=== PATIENT | male | born 1990 | race Caucasian/White ===

== ENCOUNTER 2022-04-12 14:23 | Emergency (ER) | payer OTHER, SELFPAY ==
--- NOTE | ~2022-04-12 | XR_ITS ---
EXAMINATION: XR chest 2V 04/12/2022 15:09 INDICATION: Chest pain. History of asthma. PROCEDURE: 2 view chest COMPARISON: No prior studies for comparison. FINDINGS: The lungs are clear. There is mild pulmonary vascular congestion. No overt pulmonary edema. The cardiomediastinal silhouette is within normal limits. There are no pleural effusions. There is no pneumothorax suspected. IMPRESSION: 1: NO ACUTE CARDIOPULMONARY DISEASE. Reviewed, dictated and finalized at location A. [employer] OPERATOR
--- NOTE | 2022-04-12 14:32 | ECG_ITS ---
Measurements Intervals [place] Rate: 85 P: 30 NH: 132 QRS: 70 QRSD: 108 T: 40 QT: 328 QTc: 390 Interpretive Statements SINUS RHYTHM WITHIN NORMAL LIMITS NO PREVIOUS ECG AVAILABLE FOR COMPARISON Electronically Signed On 04-12-2022 15:34:35 [employer] by Natan Chao M.D.
[2022-04-12 14:37] VITALS: BP 123/83; PULSE 87; RESP 16; TEMP 36.7; O2SAT 100
[2022-04-12 14:59] LABS: Basophils Percent Auto 0.3 % (0.2-1.2); Eosinophils Absolute Auto 0.3 K/mm3 (0-0.3); Eosinophils Percent Auto 2.8 % (0-4.4); Hematocrit 45.3 % (42.0-52.0); Hemoglobin 16.1 g/dL (14.0-18.0); Immature Granulocyte Absolute 0.02 K/mm3 (0.00-0.031); Immature Granulocyte Percent A 0.2 % (0-0.5); Lymphocytes Absolute Auto 2.23 K/mm3 (0.9-3.2); Lymphocytes Percent Auto 23.8 % (18.3-44.2); Mean Corpuscular HGB Conc 35.5 g/dl (32-36); Mean Corpuscular Hemoglobin 31.9 pg (26-34); Mean Corpuscular Volume 89.9 fl (80-100); Mean Platelet Volume 8.6 fl (7.4-10.4); Monocytes Absolute Auto 0.6 K/mm3 (0.1-0.6); Monocytes Percent Auto 6.5 % (2.6-8.5); Neutrophils Absolute Auto 6.2 K/mm3 (1.3-6.7); Neutrophils Percent Auto 66.4 % (45.5-73.1); Platelet Count Result 254 k/mm3 (150-375); Red Blood Count 5.04 M/mm3 (4.6-6.20); Red Cell Distribution Width 12.8 % (11.5-14.5); White Blood Count 9.4 K/mm3 (4.5-10.0)
[2022-04-12 15:08] LABS: Alanine Aminotransferase 37 U/L (6-50); Albumin Level 4.8 g/dL (3.5-5.1); Alkaline Phosphatase 83 U/L (38-126); Anion Gap 5 mmol/L (8-16); Aspartate Amino Transferase 30 U/L (17-59); Bilirubin,Total 0.5 mg/dL (0.2-1.3); Blood Urea Nitrogen 14 mg/dL (9-20); Carbon Dioxide 30 mmol/L (22-30); Chloride 105 mmol/L (98-107); Estimated CRCL calculation 115 ml/min; Estimated Glomerular Filt Rate > 60; Glucose 67 mg/dL (65-110); Lipase 104 U/L (23-300); Potassium 3.8 mmol/L (3.4-5.0); Sodium 140 mmol/L (137-145)
[2022-04-12 15:11] LABS: Prothrombin Time 12.9 Seconds (11.1-14.7)
[2022-04-12 15:20] LABS: Troponin I < 0.012 ng/mL (0.000-0.034)
[2022-04-12 16:41] VITALS: BP 126/85; PULSE 75; RESP 16; O2SAT 100
[2022-04-12 16:43] VITALS: PULSE 75
--- NOTE | 2022-04-12 16:46 | PC.NURSE ---
I did not do the EKG
[2022-04-12 17:01] VITALS: BP 127/85; PULSE 80; RESP 20; O2SAT 99
--- NOTE | 2022-04-12 17:34 | ED.GENADULT ---
HPI - General Adult General Chief complaint: Chest Pain Stated complaint: chest pressure Time Seen by Provider: 04/12/22 16:32 History of Present Illness HPI narrative: 31-year-old male with history of anxiety and IBS department for evaluation of intermittent left-sided heart pain. Patient states that over the last few months he has noticed a pressure sensation over what he feels is his heart. Patient states that the symptoms can occur at rest or with activity. Patient states that most frequently occur at rest and if he is thinking about it. While patient was talking about the symptoms he states that he started having an increased pressure. Patient denies any prior cardiac history. Reports no new medications. Patient reports he did have COVID and is negative. Patient denies any prior history of PE or DVT. Patient denies any shortness of breath, nausea vomiting diaphoresis when he has the episodes of chest pressure. Related Data Home Medications Medication Instructions Recorded Confirmed imipramine HCl 10 mg tablet 20 mg PO BID 09/13/21 dicyclomine 10 mg capsule 10 mg PO DAILY 04/12/22 Allergies Allergy/AdvReac Type Severity Reaction Status Date / Time melon Allergy Mild itchy Verified 04/12/22 16:47 throat cat dander Allergy itchy eyes Verified 04/12/22 16:47 latex Allergy Itching Verified 04/12/22 16:47 cortisone AdvReac Unknown Unknown Verified 04/12/22 16:47 Review of Systems Review of Systems: CONSTITUTIONAL: Denies fever, chills, or sweats. EYES: Denies visual changes, redness, or discharge. ENT: Denies rhinorrhea, congestion, sore throat, or otalgia. CARDIOVASCULAR: See HPI RESPIRATORY: Denies cough or dyspnea. GASTROINTESTINAL: Denies abdominal pain, nausea, vomiting, or diarrhea. GENITOURINARY: Denies dysuria or hematuria. SKIN: Denies rash or itching. MUSCULOSKELETAL: Denies back pain, joint pain, or myalgia. NEUROLOGIC: Denies headache, numbness, or weakness. PSYCHIATRIC: Denies anxiety or depression. [facility] Past Medical History Medical History Primary open angle glaucoma (POAG) Family History Family History Mother Family history of thyroid disease Grandparent Diabetes mellitus Depression Family history of elevated blood lipids Family history of lung cancer Father Family history of arthritis Social History Social History (Updated 03/18/22 @ 10:12 by Clarice Olguin MA) Smoking status: Never smoker Second hand tobacco smoke exposure: Yes (at work) Alcohol intake: never Substance use: never Lack of Transportation: No Lack of Food: Never True Current Housing: I Have Housing Concerned About Future Housing: No Difficulty Paying Gas/Electric Bills: No Difficulty Paying for Meds: No Currently Unemployed: No Education: Master's Degree or Higher Difficulty w/ Childcare or Family Care: No Living arrangements: alone Exam Narrative: APPEARANCE: Well appearing, no pain, no distress, well-nourished. HEAD: normocephalic, atraumatic. EYES: PERRLA/EOMI, conjunctivae clear. NOSE: Normal no drainage NECK: Supple. No adenopathy, no masses. RESPIRATORY: Airway patent, respirations nonlabored. Clear to auscultation bilaterally, no rales, rhonchi, wheezing. CARDIOVASCULAR: Regular rate and rhythm without murmurs rubs or gallops. ABDOMINAL: Soft, nontender, nondistended, normal bowel sounds MUSCULOSKELETAL: Moves all extremities. Strength/ROM intact, No edema, No calf tenderness. NEURO: Alert. Cranial nerves II through XII intact. Grossly intact SKIN: Warm, dry. Normal Color Course Course Emergency Course: 31-year-old male with intermittent chest pain at rest. Differential diagnosis for patient's symptoms does include ACS, pneumonia, pneumothorax, GI related causes, pericarditis, pleuritis. Patient is afebrile with no leukocytosis. Patient is nontach
[2022-04-12 18:04] LABS: D Dimer 0.28 ug/mL (<0.48)
[2022-04-12 18:20] LABS: Troponin I < 0.012 ng/mL (0.000-0.034)
[2022-04-12 18:48] VITALS: BP 126/87; PULSE 82; RESP 20; O2SAT 99
== END 2022-04-12 18:49 | disposition home or self-care (01) ==
PROVIDERS: Emergency Provider Emergency Medicine; PCP Family Medicine
DX: R07.89 Other chest pain (principal); K58.9 Irritable bowel syndrome, unspecified; F41.9 Anxiety disorder, unspecified; Z77.22 Contact with and (suspected) exposure to environmental tobacco smoke (acute) (chronic); Z86.16 Personal history of COVID-19
CPT/HCPCS: 36415; 71046; 80053; 83690; 84484; 85025; 85380; 85610; 85730; 93005; 99284